=== PATIENT | male | born 1955 | race Caucasian/White ===

== ENCOUNTER 2024-10-15 13:17 | Day surgery (SDC) | payer MEDICARE ==
[~2024-10-15] VITALS: Ht 182.9 cm; Wt 95.5 kg
[~2024-10-15 13:17] MED LIST: ALBUTEROL SULF8.5 GM INH; ASPIRIN EC325 MG PO; ATORVASTATIN CA40 MG PO; CARBIDOPA-LEVO1 EAC1 PO; CITALOPRAM HBR10 MG PO; CITALOPRAM HBR20 MG PO; CITALOPRAM HBR40 MG PO; CLONAZEPAM2 MG GT; COUMADIN2.5 MG PO; DILTIAZEM 24HR240 MG PO; DILTIAZEM ER180 MG PO; DILTIAZEM ER240 MG PO; HYDROCHLOROTHIA25 MG PO; HYDROCODON-ACE1 EA11 PO; HYDROXYZINE HCL25 MG PO; IBLOOD GLUCOSE TEST STRIP 1 EA TEST VI PRN; LACTATED RINGER'S 1,000 ML IV SCH; LEVOTHYROXINE50 MCG PO; LIDOCAINE HCL 1% 5 ML SDV INJ ONE; LOPRESSOR100 MG PO; LOSARTAN POTAS100 MG PO; LOVASTATIN20 MG PO; LOVASTATIN40 MG PO; METFORMIN HCL500 M3 PO; MIDAZOLAM HCL 5 MG/5 ML VIAL IV PRN; NORVASC10 MG PO; NORVASC5 MG PO; PLAVIX75 MG PO; PRILOSEC40 MG PO; PROMETHAZINE HC25 M1 PO; REQUIP1 MG PO; ROSUVASTATIN CA20 MG PO; VITAMIN D32000 UNIT PO; VITAMIN D5000 UNIT PO; WARFARIN SODIU2.5 MG PO; fentaNYL citrate 100 MCG/2 ML VIAL IV PRN
[2024-10-15 13:28] VITALS: BP 164/78
[2024-10-15] MEDS ORDERED: MULTI VITAMIN1 EACH PO (13:33)
[2024-10-15] MEDS ORDERED: MIDAZOLAM HCL 5 MG/5 ML VIAL ONE (13:54)
[2024-10-15] MEDS ORDERED: fentaNYL citrate 100 MCG/2 ML VIAL ONE (13:54)
--- NOTE | 2024-10-15 15:02 | NUR ---
10/15/24 1502 Yesenia Velasquez 1451 PT ARRIVED IN PACU AWAKE AND TALKING TO STAFF. ABD SOFT. 1500 SITTING UP IN BED.
[2024-10-15 15:18] VITALS: BP 122/54
--- NOTE | 2024-10-17 11:03 | OR ---
[facility] [address], [place] [address] Signed DATE OF OPERATION: 10/15/2024 SURGEON: Олег Tinsley MD PREOPERATIVE DIAGNOSES: 1. Colon screening. 2. Family history of colon cancer (mother). 3. Chronic anticoagulation with Coumadin for paroxysmal atrial fibrillation. POSTOPERATIVE DIAGNOSES: 1. Sigmoid diverticulosis. 2. Polyps x4. PROCEDURE: Total colonoscopy to cecum with cold snare polypectomy x3, cold morcellation polypectomy x1. ANESTHESIA: Intravenous sedation; fentanyl 150 mcg, Versed 6 mg. INDICATION: This 69-year-old white man is a patient of Dr. Jayde Mcclelland and known to me from the past. He did undergo colonoscopy in 2014 at which time, he was confirmed to have diverticulosis. The patient did undergo sigmoid resection in the past for diverticula. He has family history of colon cancer in his mother. He currently has no symptoms of bleeding, diarrhea, or constipation. The patient is anticoagulated with Coumadin for paroxysmal atrial fibrillation. 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 He is admitted at this time to undergo colonoscopy being withheld from his Coumadin at this time; clinically and by echocardiogram he does have normal sinus rhythm. The risk of bleeding, infection, and perforation related to colonoscopy was reviewed in detail. He understands and wished to proceed. FINDINGS: The prep was good. Complete colonoscopy was undertaken to the cecum. He had four polyps in aggregate; two in the cecum, one in the distal right colon, one in the rectosigmoid. Numerous diverticula were noted at the sigmoid. He had no other findings of concern. DESCRIPTION OF PROCEDURE: The patient was brought to the endoscopy suite and placed in the lateral decubitus Electronically Signed By: ОЛЕГ TINSLEY MD 10/17/24 1103 PATIENT NAME: IRENA YOUSSEF OPERATIVE REPORT DATE OF : 59 REPORT #: [id number] PHYSICIAN: ОЛЕГ TINSLEY MD PCP: JAYDE MCCLELLAND MD REPORT IS CONFIDENTIAL AND NOT TO BE RELEASED WITHOUT AUTHORIZATION [facility] [address], [place] [address] Signed position, given intravenous sedation to the point of slurred speech and nystagmus with full cardiopulmonary monitoring. Digital rectal examination was normal. An Olympus video colonoscope was passed in the rectum and manipulated through the sigmoid which showed numerous diverticula. There was a small polyp at the rectosigmoid, which was excised with cold morcellation technique. Further passage of the scope ultimately to the cecum was undertaken. There were two polyps there one larger than the other; one excised with cold snare technique, the other with cold morcellation technique. The scope was withdrawn and a larger sessile polyp nearly a cm noted in the distal ascending colon, this was excised with cold snare technique as well. The scope was withdrawn fully after offloading the largest polyp. The scope reintroduced and passed ultimately to the cecum once again. Good hemostasis was noted in the cecum and the right colon. Scope was then withdrawn and careful inspection of the remaining colon showed only diverticulosis. Retroflexed view of the rectum was normal. Scope was removed and the patient was taken to the recovery room in good condition. CONCLUDING DIAGNOSES: 1. Polyps x4. 2. Diverticulosis. 3. Chronic anticoagulation. PLAN: Recommend repeat colonoscopy in 5 years based on family history, sooner if symptoms should develop. Would recommend he restart his Coumadin today. He will return to the ongoing care of Dr. Jayde Mcclelland. He would return to the Coumadin Clinic one week more or less for affirmation of adequate anticoagulation with Coumadin. MD MARCOS Zavaleta/ZOYAL /[id number] cc: Jayde Mcclelland MD Electronically Signed By: ОЛЕГ TINSLEY MD 10/17/24 1103 PATIENT NAME: IRENA YOUSSEF OPERATIVE REPORT DATE OF : 59 REPORT #: [id number] PHYSICIAN: ОЛЕГ TINSLEY MD PCP: JAYDE MCCLELLAND MD REPORT IS CONFIDENTIAL AND NOT TO BE RELEASED WITHOUT AUTHORIZATION [facility] [address], [place] [address] Signed Copies: JAYDE MCCLELLAND MD ~ Electronically Signed By: ОЛЕГ TINSLEY MD 10/17/24 1103 PATIENT NAME: IRENA YOUSSEF OPERATIVE REPORT DATE OF : 59 REPORT #: [id number] PHYSICIAN: ОЛЕГ TINSLEY MD PCP: JAYDE MCCLELLAND MD REPORT IS CONFIDENTIAL AND NOT TO BE RELEASED WITHOUT AUTHORIZATION
--- NOTE | 2024-10-17 15:04 | PATH ---
[facility] [address], [place] [address] Signed SPECIMEN(S): A RECTOSIGMOID POLYP SPECIMEN(S): B CECUM POLYP #1 SPECIMEN(S): C CECUM POLYP #2 SPECIMEN(S): D ASCENDING POLYP SPECIMEN SOURCE: A. RECTOSIGMOID POLYP B. CECUM POLYP #1 C. CECUM POLYP #2 D. ASCENDING POLYP CLINICAL HISTORY: Family history of colon cancer-mother, diverticulosis FINAL PATHOLOGIC DIAGNOSIS: A. Rectosigmoid polyp: - Polypoid colonic mucosa with slight hyperplastic features (two fragments). B. Cecum polyp #1: - Tubular adenoma (four fragments). C. Cecum polyp #2: - Serrated polyp/adenoma (two fragments). D. Ascending polyp: - Tubular adenoma (multiple fragments). JVR:[facility] MICROSCOPIC EXAMINATION: Histologic sections of all submitted blocks are examined by light microscopy. These findings, together with the gross examination, support the pathologic diagnosis. GROSS DESCRIPTION: A. The specimen, labeled and designated "Tally, rectosigmoid polyp," is received in formalin and consists of three fox soft tissue fragments, ranging from 0.1-0.8 cm. Entirely submitted in (A1). B. The specimen, labeled and designated "Tally, cecum polyp #1," is received in formalin and consists of seven fox soft tissue fragments, ranging from 0.1-0.7 cm. Entirely submitted in (B1). C. The specimen, labeled and designated "Tally, cecum polyp #2," is received in formalin and consists of two fox soft tissue fragments, ranging from 0.2-0.7 cm. Entirely submitted in (C1). D. The specimen, labeled and designated "Tally, ascending polyp," is received PATIENT NAME: IRENA YOUSESF PATHOLOGY DATE OF : 59 REPORT #: [id number] PHYSICIAN: MAYAaihuishou MONIE PCP: JAYDE UPTON MD REPORT IS CONFIDENTIAL AND NOT TO BE RELEASED WITHOUT AUTHORIZATION [facility] [address] [place], [place] [address] Signed in formalin and consists of a red to pink-fox slightly fragmented polypoid piece of tissue (1.1 x 0.8 x 0.5 cm). The possible resection margin is inked blue, and the tissue is bisected to reveal pink-fox soft cut surfaces. The specimen is submitted entirely in cassette (D1). VB (under the direct supervision of a pathologist) The Gross Description was prepared using a voice recognition system. The report was reviewed for accuracy; however, sound-alike word errors, addition and/or deletions may occur. If there is any question about this report, please contact Client Services. PERFORMING LABORATORY: Technical component was performed by [employer], [address] [place] [id number] (CLIA# [id number]). Professional interpretation was performed by [facility], [address] [place] [id number] (CLIA#: [id number]). Diagnostician: Deepak Carreno MD Pathologist Electronically Signed 10/17/2024 Copies: ~ PATIENT NAME: IRENA YOUSSEF PATHOLOGY DATE OF : 59 REPORT #: [id number] PHYSICIAN: [facility] PCP: JAYDE UPTON MD REPORT IS CONFIDENTIAL AND NOT TO BE RELEASED WITHOUT AUTHORIZATION
[2024-10-23] MEDS ORDERED: AMLODIPINE BESYL5 MG PO (14:40)
== END 2024-10-15 15:30 | disposition home or self-care (01) ==
LOC: DS 13:17
PROVIDERS: ATTEND Surgery
PROC: 0DBP8ZX Excision of Rectum, Via Natural or Artificial Opening Endoscopic, Diagnostic (ICD-10-PCS; 2024-10-15)
PROC: 0DBH8ZX Excision of Cecum, Via Natural or Artificial Opening Endoscopic, Diagnostic (ICD-10-PCS; 2024-10-15)
PROC: 0DBK8ZX Excision of Ascending Colon, Via Natural or Artificial Opening Endoscopic, Diagnostic (ICD-10-PCS; principal; 2024-10-15 14:00)
DX: Z12.11 Encounter for screening for malignant neoplasm of colon (principal); K57.30 Diverticulosis of large intestine without perforation or abscess without bleeding; D12.2 Benign neoplasm of ascending colon; D12.0 Benign neoplasm of cecum; I48.0 Paroxysmal atrial fibrillation; K56.50 Intestinal adhesions [bands], unspecified as to partial versus complete obstruction; I10 Essential (primary) hypertension; J44.9 Chronic obstructive pulmonary disease, unspecified; F41.9 Anxiety disorder, unspecified; G20.A1 Parkinson's disease without dyskinesia, without mention of fluctuations; E11.9 Type 2 diabetes mellitus without complications; Z80.0 Family history of malignant neoplasm of digestive organs; Z88.8 Allergy status to other drugs, medicaments and biological substances; Z79.01 Long term (current) use of anticoagulants; Z79.84 Long term (current) use of oral hypoglycemic drugs; Z79.899 Other long term (current) drug therapy
CPT/HCPCS: 88305; 99153; G0500; J2250; J3010; J7121